=== PATIENT | male | born 1960 | race African-American/Black ===

== ENCOUNTER 2017-02-20 11:45 | Emergency (ER) | payer OTHER ==
[2017-02-20 12:17] LABS: BASOPHIL 0.2 % (0-2); EOSINOPHIL 1.8 % (0-5); HCT 36.7 % (42.0-52.0); HGB 11.7 g/dl (13.2-18.0); LYMPHOCYTE 31.7 % (15-48); MCH 22.6 pg (25.0-31.0); MCHC 31.9 g/dL (32.0-36.0); MCV 70.8 fL (78.0-100.0); MONOCYTE 9.8 % (0-12); MPV 10.3 fL (6.0-9.5); NEUTROPHIL 56.5 % (41-80); PLT 231 K/uL (150-400); RBC 5.18 M/uL (4.70-6.00); RDW 16.6 % (11.5-14.0); WBC 6.2 K/uL (4.0-10.5)
[2017-02-20 12:32] LABS: INR 1.01 (0.9-1.2); PROTHROMBIN TIME 12.4 SECONDS (11.4-13.2)
[2017-02-20 12:35] LABS: ALBUMIN 3.5 g/dL (3.5-5.0); BILIRUBIN - TOTAL 0.2 mg/dL (0.1-1.0); CREATININE 0.9 mg/dL (0.7-1.2); GLOBULIN (CALCULATION) 4.1 g/dL (2.2-4.2); MAGNESIUM 2.11 mg/dL (1.40-2.10); POTASSIUM 4.2 mmol/L (3.5-5.1); TOTAL PROTEIN 7.6 g/dL (6.4-8.3)
[2017-02-20 12:39] LABS: CKMB 1.93 ng/mL (0.97-4.94); MYOGLOBIN 24 ng/mL (26-65); PRO-BNP 153 pg/mL (0-125); TROPONIN T < 0.010 ng/mL
== END 2017-02-20 16:03 | disposition home or self-care (01) ==
LOC: FER 11:45
PROVIDERS: Emergency Medicine
DX: R07.89 Other chest pain (principal); F32.9 Major depressive disorder, single episode, unspecified; Z79.899 Other long term (current) drug therapy
CPT/HCPCS: 36415; 71010; 80053; 80164; 82550; 82553; 83735; 83874; 83880; 84484; 85025; 85610; 85730; 93005

== ENCOUNTER → 2022-01-26 | Day surgery (SDC) | payer OTHER ==
[~2022-01-26] VITALS: Ht 172.7 cm; Wt 108.9 kg
[~2022-01-26] MED LIST: DIVALPROEX SOD500 MG PO; INVEGA SUS234 MG/1.5 IM; MULTI-VITAMIN1 EACH PO; [UNRECOGNIZED DRUG - REMARK] PO
== END | disposition home or self-care (01) ==
LOC: FAS 08:13
DX: Z12.11 Encounter for screening for malignant neoplasm of colon (principal)
CPT/HCPCS: J2250